=== PATIENT | male | born 1980 | race Hispanic/Latino ===

== ENCOUNTER → 2019-01-31 12:10 | Outpatient (CLI) | payer OTHER, SELFPAY ==
[2019-01-31 15:13] LABS: Urine N gonorrhoeae NOT DETECTED
[2019-01-31 15:16] LABS: Urine Chlamydia NOT DETECTED
== END ==
PROVIDERS: Visit Provider Physician Assistant
DX: Z11.3 Encounter for screening for infections with a predominantly sexual mode of transmission (principal); R73.9 Hyperglycemia, unspecified; R30.0 Dysuria
CPT/HCPCS: 87086; 87491; 87591

== ENCOUNTER → 2019-01-31 12:21 | Outpatient (CLI) | payer OTHER, SELFPAY ==
[2019-01-31 13:06] LABS: Hemoglobin A1C% w Est Avg Glu 12.2 % (4.0-6.0)
== END ==
PROVIDERS: Visit Provider Physician Assistant
DX: R73.9 Hyperglycemia, unspecified (principal)
CPT/HCPCS: 36415; 83036

== ENCOUNTER → 2019-02-08 10:53 | Outpatient (CLI) | payer OTHER, SELFPAY ==
--- NOTE | 2019-02-08 12:37 | DIET.PN ---
Dietary Note Diabetes Intake: Initial Assessment Assess: Mr Izquierdo is a 38 YOM referred for type 2 diabetes. He is newly diagnosed and has been taking metformin and testing BG x 2 days. He reports family HX of diabetes. He reports blood glucose has been between 250-300. His usual dietary intake include sodas, rice, noodles, and high fat foods. He rarely to never consumes fruits or vegetables. He has had no prior diabetes education and presents concerned with the acute and chronic complications discussed today. Pt reports consuming beer nightly. He is going to the [facility] for 2 weeks and admits he will be eating and drinking more heavily than usual. Advised pt continue to take metformin as directed and to monitor BG closely. Labs: Per pt report : A1c: 12.2 FB Lipid Panel: pending Meds: Metformin 500 mg BID; Lisinopril 2.5 mg Diet: per 24 hr recall: high in starches, sugar sweetened bvgs, teas, beer Wt: 191 lb Ht: 66 in BMI: 30. 8 Goal: 160 DX: Altered nutrition related laboratory values related to impaired glucose metabolism, lack of previous exposure to nutrition information as evidenced by pt report, diagnosis of diabetes, previous diet high in refined carbohydrates. Intervention: 1. Completed intake assessment. Discussed barriers to care. 2. Discussed pathophysiology of diabetes. Reviewed A1c and its correlation to blood glucose numbers. Discussed recommended BG ranges. 3. Discussed importance of self-monitoring, how often, and when to check. Provided demonstration on use of glucometer. 4. Reviewed hyper/hypoglycemia and treatment. 5. Reviewed safe disposal of equipment (strip/lancets/insulin needles). 6. Created SMART goals for pt self-care and success. 7. Discussed program curriculum outline and class needs based on individual goals. SMART Goals: 1. Pt would like to lose 10 lb (~5% weight) in the next 3 mo through changes in eating patterns and beginning an exercise program. Monitor/Evaluate: Anticipate good compliance. Pt will attend full DSME program. Exercise and lifestyle class scheduled for Mar 01.
== END ==
PROVIDERS: PCP Nurse Practitioner; Visit Provider Nurse Practitioner
DX: E11.9 Type 2 diabetes mellitus without complications (principal); Z79.84 Long term (current) use of oral hypoglycemic drugs; E66.9 Obesity, unspecified; Z68.30 Body mass index [BMI] 30.0-30.9, adult; Z71.3 Dietary counseling and surveillance
CPT/HCPCS: G0108

== ENCOUNTER → 2019-02-09 08:47 | Outpatient (CLI) | payer OTHER, SELFPAY ==
[2019-02-09 09:17] LABS: Add Manual Diff / Slide Review NO; Basophils Absolute Auto 0 /uL (0-100); Basophils Percent Auto 0.5 % (0-2); Eosinophils Absolute Auto 400 /uL (0-450); Eosinophils Percent Auto 5.3 % (2-4); Hematocrit 46.1 % (41-53); Hemoglobin 16.4 g/dL (13.5-17.5); Lymphocytes Absolute Auto 2300 /uL (1100-4500); Lymphocytes Percent Auto 32.9 % (25-40); Mean Corpuscular HGB Conc 35.5 % (30-36); Mean Corpuscular Hemoglobin 30.8 PG (26-34); Mean Corpuscular Volume 86.7 fL (80-100); Monocytes Absolute Auto 700 /uL (0-900); Monocytes Percent Auto 10.2 % (3-14); Neutrophils Absolute Auto 3600 /uL (1500-7000); Neutrophils Percent Auto 51.1 % (50-75); Platelet Count 202 X10^3/uL (150-400); Red Blood Cell Count 5.32 X10^6/uL (4.5-5.9); Red Cell Distribution Width 12.7 % (11.6-14.8); White Blood Cell Count 7.1 X10^3/uL (4.5-11.0)
[2019-02-09 09:49] LABS: Creatinine Urine Random 316.9 mg/dL
[2019-02-09 09:53] LABS: Alanine Aminotransferase 40 IU/L (<50); Albumin 4.7 g/dL (3.5-5.0); Albumin Globulin Ratio 1.5 (1.0-2.8); Alkaline Phosphatase 81 U/L (38-126); Aspartate Aminotransferase 42 IU/L (17-59); BUN Creatinine Ratio 25.7 (6-22); Bilirubin Total 0.9 mg/dL (0.2-1.3); Blood Urea Nitrogen 18 mg/dL (9-20); Calcium 9.5 mg/dL (8.4-10.2); Carbon Dioxide 28 mmol/L (22-32); Chloride 101 mmol/L (98-107); Cholesterol 296 mg/dL (140-199); Estimated Glomerular Filt Rate > 60.0 mL/min (>60); Globulin 3.1 g/dL (1.7-4.1); Glucose 221 mg/dL (70-100); HDL Cholesterol 40 mg/dL (40-60); HEMOLYSIS < 15 (0-50); Sodium 139 mmol/L (137-145); Total Protein 7.8 g/dL (6.3-8.2); Triglycerides 437 mg/dL (35-150)
[2019-02-09 09:56] LABS: Microalbumi Creatinin Ratio Ur 25.8 ug/mg CR (<30); Microalbumin Urine Random 8.2 mg/dL (0-1.6)
[2019-02-09 10:06] LABS: Free T3, Triiodothyronine Free 4.19 pg/mL (2.77-5.27); Free T4, Direct Thyroxine 1.24 ng/dL (0.78-2.19)
[2019-02-09 10:20] LABS: Thyroid Stimulating Hormone 1.71 uIU/mL (0.47-4.68)
== END ==
PROVIDERS: PCP Nurse Practitioner; Visit Provider Nurse Practitioner
DX: Z00.00 Encounter for general adult medical examination without abnormal findings (principal); E11.9 Type 2 diabetes mellitus without complications; I10 Essential (primary) hypertension
CPT/HCPCS: 36415; 80053; 80061; 82043; 82570; 84439; 84443; 84481; 85025

== ENCOUNTER → 2019-03-01 09:56 | Outpatient (CLI) | payer OTHER, SELFPAY ==
--- NOTE | 2019-03-01 12:04 | DIET.PN ---
Exercise/Lifestyle change (1 hr): 1. Importance of exercise 2. FITT (frequency, intensity, time, type) 3. Strength training tips and guidelines 4. Glucose monitoring/ranges before and after 5. Proper foot attire 6. Developing strategies for behavior change 7. SMART Goal Setting 8. Home exercise routine demonstration (as a class)
== END ==
PROVIDERS: PCP Nurse Practitioner; Visit Provider Nurse Practitioner
DX: E11.9 Type 2 diabetes mellitus without complications (principal); I10 Essential (primary) hypertension; Z71.3 Dietary counseling and surveillance
CPT/HCPCS: G0109

== ENCOUNTER → 2019-04-02 10:27 | Outpatient (CLI) | payer OTHER, SELFPAY ==
[2019-04-02 13:37] VITALS: BMI 30.2
--- NOTE | 2019-04-02 13:47 | DIET.PN ---
DIABETES Nutrition Initial Assessment:? ASSESS:???38 yom referred for type 2 diabetes seen as part of DSME program. Patient has cut out all sugar sweetened beverages since diagnosis. He continues to eat fast food or processed items 1-2 meals each day. Dinner generally consists of homemade chicken or fish with a vegetable stir mclain. He admits to drinking 5-6 beers most nights and occasionally drinks hard liquor. He has not started exercising as he is walking around at work most of his shift. He works an evening shift (2p-10p) and is usually up until 4 am following his shift. Breakfast consists of [employer] BigMac (noon), Beef Pot Pie for lunch (6-7p) and a stir-mclain for dinner (11p). He snacks on beef jerky or anything that is available in his work breakroom. ? LABS: Per pt report:? A1c: 12.2 TC: 296 LDL :TNP HDL: 40 Tri ? MEDS:?? metf 500mg BID; Lisinopril: 2.5mg ? DIET: Per 24-hour recall:? B: [employer] BigMac (noon) L: Beef Pot Pie (6-7p) D: Chicken stir-mclain (11p) ? Weight: 188 (down 3 #) Ht:? 66? BMI: 30.2 ? Exercise:? walks at work NUTRITION DX 1. Altered Nutrition related labs related to impaired glucose metabolism, lack of previous exposure to accurate nutrition information as evidenced by pt report, dx of diabetes, previous diet high in refined carbohydrates.? INTERVENTION(s): 1. Discussed pathophysiology of diabetes and impact of nutrition/diet on blood sugar control.? Discussed fed versus non-fed state.?? 2. Discussed the effect of carbohydrates/protein/fat on blood sugar control.? Stressed importance of consistent carbohydrate intake at each meal and provided instructions for recommended servings/portions of carbohydrates/protein per meal. Provided pt with educational material. 3. Reviewed carbohydrate counting and measuring carbohydrate content via serving sizes and reading nutrition labels.? Provided handouts.?? 4. Discussed the difference between simple versus complex carbohydrates and the effect of fiber on blood sugar control.? Discussed various methods to increase fiber content in diet. 5. Stressed importance of meal timing and not going >4-5 hours between meals. Encouraged adding protein to evening snack to support glucose control overnight. Patient agreeable. 6. Discussed healthy weight loss goals of 1-2lbs per week through diet and exercise.? Pt agreeable to incorporating 30 min of strength/resistance training activity 3x/wk. MONITOR/EVALUATE: Anticipate good compliance.? Pt to continue classes, Follow-up scheduled for 1 month to discuss new labs.
== END ==
PROVIDERS: PCP Nurse Practitioner; Visit Provider Nurse Practitioner
DX: E11.9 Type 2 diabetes mellitus without complications (principal); Z79.84 Long term (current) use of oral hypoglycemic drugs; Z71.3 Dietary counseling and surveillance; E66.9 Obesity, unspecified; Z68.30 Body mass index [BMI] 30.0-30.9, adult
CPT/HCPCS: G0109

== ENCOUNTER → 2019-04-16 14:25 | Outpatient (CLI) | payer OTHER, SELFPAY ==
--- NOTE | 2019-04-16 17:00 | DIET.PN ---
Diabetes: Healthy Eating 2 Intervention: Fats effects on glucose, weight, heart disease, cholesterol Sat Vs Unsat Protein- animal and plant based options Low, med, high fat meats Sugar substitutes Sodium Health claims Grocery shopping guidelines Eating away from home Alcohol Sick day guidelines
== END ==
PROVIDERS: PCP Nurse Practitioner; Visit Provider Nurse Practitioner
DX: E11.9 Type 2 diabetes mellitus without complications (principal)
CPT/HCPCS: G0109

== ENCOUNTER → 2019-04-26 09:00 | Outpatient (CLI) | payer OTHER, SELFPAY ==
[2019-04-26 10:10] LABS: Cholesterol 260 mg/dL (140-199); Glucose 191 mg/dL (70-100); HDL Cholesterol 48 mg/dL (40-60); Triglycerides 461 mg/dL (35-150)
[2019-04-26 16:44] LABS: Hemoglobin A1C% w Est Avg Glu 9.3 % (4.0-6.0)
== END ==
PROVIDERS: PCP Nurse Practitioner; Visit Provider Nurse Practitioner
DX: E11.9 Type 2 diabetes mellitus without complications (principal); I10 Essential (primary) hypertension
CPT/HCPCS: 36415; 80061; 82947; 83036

== ENCOUNTER → 2019-04-26 09:59 | Outpatient (CLI) | payer OTHER, SELFPAY ==
--- NOTE | 2019-04-26 12:17 | DIET.PN ---
Diabetes Physiology: Intervention 1. Diabetes physiology 2. Detecting and treatment of acute and chronic complications 3. Diagnosis of and difference in types of diabetes 4. Self-monitoring and pattern management a. Demonstrate glucometer and control testing b. Explain BG results and action to take when out of range. 5. Foot , eye, dental care 6. Medications a. Oral medication classification b. Injectable c. Insulin i. Injection protocol i. Other delivery methods
== END ==
PROVIDERS: PCP Nurse Practitioner; Visit Provider Nurse Practitioner
DX: E11.9 Type 2 diabetes mellitus without complications (principal); I10 Essential (primary) hypertension
CPT/HCPCS: 36415; 80061; 82947; 83036; G0109

== ENCOUNTER → 2019-05-17 10:34 | Outpatient (CLI) | payer OTHER, SELFPAY ==
--- NOTE | 2019-05-17 11:55 | DIET.PN ---
Diabetes Follow Up Assess: Met for Mr. Izquierdo's 3 mo follow up visit. He is excited to report a significant reduction in his HbgA1c. He reports making several changes to his dietary habits including decreasing servings of rice and other starches, completely cutting out sugary sweetened beverages, and cutting back on alcohol. He admits he did not follow these new patterns while on vacation the last 2 weeks, but is ready to get back on it. We discussed his most recent labs in detail. His total cholesterol did improve while his triglycerides increased. He is aware his chronic intake of alcohol can effect these labs as well as a diet high in saturated fats. Since beginning the diabetes program he had an opportunity to see an eye doctor and is working on getting a dental appointment. He is seeing a client success manager regularly and is eager to continue bringing his blood sugars down. He has not started exercising due to his work schedule but agrees to make this a part of his routine at least 3 days per week by joining a local fitness facility. His metformin was increased to 1000 mg BID. Reports GI side effects, but is aware this will resolve. Labs: 9.3 (baseline 12.2) Chol: 260 (baseline 296) LDL: TNP HDL: 48 (baseline 40) Tri (baseline 437) Meds: metformin 1000 mg BID ; lisinopril; started a statin Dietary changes: decreased starch intake, cut out sugary beverages Ht: 66 Wt: 188# (baseline 191) BMI: 30.2 Nutrition DX: Altered nutrition related laboratory values related to impaired glucose metabolism, lack of previous exposure to nutrition information as evidenced by pt report, diagnosis of diabetes, previous diet high in refined carbohydrates. Intervention: 1. Completed follow up assessment. Reviewed barriers to care. 2. Reviewed new labs and importance of continued BG monitoring. 3. Reviewed SMART goals and made modifications where appropriate including wt management, activity, and A1c goals. 4. Discussed plan for ongoing support. Provided information for continued support and success. SMART goals: 1. Begin exercising 3x/wk by signing up for local fitness facility. 2. Continue monitoring fasting BG and 2 hr pp alternating mealtimes. Monitor/Evaluate: Pt will follow up in 3 mo to discuss new labs and barriers to care.
== END ==
PROVIDERS: PCP Nurse Practitioner; Referring Provider Nurse Practitioner; Visit Provider Nurse Practitioner
DX: E11.69 Type 2 diabetes mellitus with other specified complication (principal); E66.9 Obesity, unspecified; Z71.3 Dietary counseling and surveillance; Z79.84 Long term (current) use of oral hypoglycemic drugs; Z68.30 Body mass index [BMI] 30.0-30.9, adult
CPT/HCPCS: G0109

== ENCOUNTER → 2019-06-07 09:50 | Outpatient (CLI) | payer OTHER, SELFPAY ==
--- NOTE | 2019-06-07 11:44 | DIET.PN ---
Diabetes: Healthy Eating 1 Intervention: ? Discussed pathophysiology of diabetes and impact of nutrition/diet on blood sugar control.? Discussed fed versus non-fed state.?? ? Reviewed importance of Balance, Variety, and Moderation. ? Discussed the effect of carbohydrates/protein/fat on blood sugar control.? ? Stressed importance of consistent carbohydrate intake at each meal and provided instructions for recommended servings/portions of carbohydrates/protein per meal. Provided educational material. ? Reviewed carbohydrate counting and measuring carbohydrate content via serving sizes and reading nutrition labels.? Provided handouts.?? ? Discussed the difference between simple versus complex carbohydrates and the effect of fiber on blood sugar control.? Discussed various methods to increase fiber content in diet. ? Discussed the plate method for creating more carbohydrate conscious balanced meals. ? Stressed importance of meal timing and not going >4-5 hours between meals. Encouraged adding protein to evening snack to support glucose control overnight. ?Discussed importance of making dietary habits part of lifestyle change.
== END ==
PROVIDERS: PCP Nurse Practitioner; Referring Provider Nurse Practitioner; Visit Provider Nurse Practitioner
DX: E11.9 Type 2 diabetes mellitus without complications (principal); I10 Essential (primary) hypertension; Z71.3 Dietary counseling and surveillance
CPT/HCPCS: G0109

== ENCOUNTER 2019-06-13 16:30 | Emergency (ER) | payer OTHER, SELFPAY ==
[2019-06-13 16:45] VITALS: BP 147/97; PULSE 114; RESP 20; TEMP 36.8; O2SAT 97; BMI 29.5
--- NOTE | 2019-06-13 17:00 | DI.RAD.S_ITS ---
PROCEDURE: XR HIP W PEL IF DONE RT 2V INDICATIONS: pain TECHNIQUE: AP pelvis with lateral view(s) of the right hip(s). COMPARISON: None. FINDINGS: Bones: No fractures or dislocations. Pelvic ring appears intact. No suspicious bony lesions. Mild right hip degenerative change. Soft tissues: The visualized bowel gas pattern is normal. No suspicious soft tissue calcifications. IMPRESSION: Mild right hip degenerative change. No evidence acute bony abnormality of the pelvis and right hip. If clinical suspicion and/or symptoms persist, further assessment with repeat plain films, or advanced imaging (e.g., CT, MRI, or bone scan) may be helpful for further assessment. Dictated by: Nixon Shafer M.D. on 06/13/2019 at 17:30 Approved by: Nixon Shafer M.D. on 06/13/2019 at 17:30
[2019-06-13 17:03] VITALS: BMI 29.5
[2019-06-13] MEDS: KETOROLAC 60 MG/2 ML VIAL IM (17:09)
--- NOTE | 2019-06-13 17:16 | PC.NURSE ---
patient was positioned in the left lateral position and given Intramuscular injection in the ventralgluteal space.
--- NOTE | 2019-06-13 18:18 | ED_ITS ---
HPI - Extremity Injury (Lower) <YG Arzate - Last Filed: 06/13/19 18:29> General Chief Complaint: Extremity Injury, Lower Stated Complaint: Inner right thigh/groin pain injury yesterday Time Seen by Provider: 06/13/19 16:48 Source: patient Mode of arrival: Ambulatory Limitations: no limitations History of Present Illness HPI Narrative: The patient is a 38-year-old male current smoker with history of hypertension who presents with a chief complaint of right side that I and groin pain since yesterday. He was working on a ladder, lifting up posters and then had pain in his right groin area. He denies any dysuria urgency or frequency. He states it is in the inguinal region. He denies any testicular pain. He has not taken any Tylenol or Motrin or anything to help it feel better. He states it is worse with motion and that he thinks he ?pulled something.He denies any falls or trauma. And picking up his leg makes the pain worse. He does have a family history of arthritis. He does state that he drinks about 6 cans of beer most days of the week. 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 Related Data Home Medications Medication Instructions Recorded Confirmed atorvastatin 06/13/19 lisinopril 06/13/19 metformin mg 06/13/19 Previous Rx's Medication Instructions Recorded alcohol swabs 1 pad TOP .QD #100 each 02/04/19 blood sugar diagnostic #100 each 02/04/19 blood-glucose meter #1 each 02/04/19 lancets #100 each 02/04/19 atorvastatin 10 mg tablet 10 mg PO BEDTIME #90 tab 05/03/19 lisinopril 2.5 mg tablet 2.5 mg PO DAILY #90 tab 05/03/19 metformin 1,000 mg tablet 1,000 mg PO BID #90 tab 05/03/19 ketorolac 10 mg PO TID PRN #14 tab 06/13/19 Allergies Allergy/AdvReac Type Severity Reaction Status Date / Time No Known Drug Allergies Allergy Verified 06/13/19 16:45 Review of Systems <YG Arzate - Last Filed: 06/13/19 18:29> Review of Systems Narrative: GENERAL: Denies chills, fatigue, malaise, fever, sweats. HEENT: Denies sinus pain, ear pain, sore throat, difficulty swallowing, dizziness. RESPIRATORY: Denies dyspnea, cough, wheezing, hemoptysis, sputum. CARDIOVASCULAR: Denies chest pain, palpitations, orthopnea, edema, GASTROINTESTINAL: Denies nausea, vomiting, abdominal pain, diarrhea, constipation, melena. : Denies dysuria, frequency, incontinence, hematuria, urinary retention. MUSCULOSKELETAL: See HPI SKIN: Denies rash, skin lesions, or other NEUROLOGIC: Denies weakness, headache, numbness, change in speech, confusion, seizures, incoordination. PSYCHIATRIC: No concerning psychosocial issues. 12 point review of systems is negative except for those stated above Patient History <YG Arzate - Last Filed: 06/13/19 18:29> Medical History Hyperlipidemia (Acute) Occupational exposure in workplace (Acute) Family History Father Hypertension Hyperlipidemia Mother Type I diabetes mellitus Mental health problem Sister Lupus Social History Smoking Status: Current every day smoker eating out: 4 or more times/week Type(s) of exercise: walking Smoking Status: Current every day smoker tobacco type: cigarettes alcohol intake frequency: 3 or more drinks per day Alcohol type: beer Substance Use Type: does not use Exam <YG Arzate - Last Filed: 06/13/19 18:29> Narrative Exam Narrative: GENERAL: This is a well-nourished, well-developed patient, no acute distress HEAD: Atraumatic. Normocephalic. No temporal or scalp tenderness. EYES: Pupils equal round and reactive. Extraocular motions intact. No scleral icterus. No injection or drainage. ENT: Nose without bleeding, purulent drainage or septal hematoma. Throat without erythema, tonsillar hypertrophy or exudate. Uvula midline. Airway patent. NECK: Trachea midline. No JVD or lymphadenopathy. Supple, nontender, no meningeal signs. CARDIOVASCULAR: Regular rate and rhythm RESPIRATORY: Clear to auscultation. Breath sounds equal bilaterally. No wheezes, rales, or rhonchi. No cough. No increased respiratory effort. No accessory muscle use. EXTREMITIES: No clubbing, cyanosis, or edema. No joint tenderness, effusion, or edema noted. Bilateral pedal pulses intact. Pain to palpation of right inguinal area. decreased range of motion all rosenberg right hip. BACK: Nontender without deformity or crepitance. No flank tenderness. NEURO: AOx3. SKIN: No rash or erythema. Initial Vital Signs Initial Vital Signs: Vital Signs Temperature 98.2 F 06/13/19 16:45 Pulse Rate 114 H 06/13/19 16:45 Respiratory Rate 20 06/13/19 16:45 Blood Pressure 147/97 H 06/13/19 16:45 Pulse Oximetry 97 06/13/19 16:45 <Jeanmarie Pena DO - Last Filed: 06/13/19 18:48> Initial Vital Signs Initial Vital Signs: Vital Signs Temperature 98.2 F 06/13/19 16:45 Pulse Rate 114 H 06/13/19 16:45 Respiratory Rate 20 06/13/19 16:45 Blood Pressure 147/97 H 06/13/19 16:45 Pulse Oximetry 97 06/13/19 16:45 Course <YG Arzate - Last Filed: 06/13/19 18:29> Orders Ordered: ED Orders 06/13/19 17:00 XR hip w pel if done RT 2V Stat Discontinued Medications Ketorolac Tromethamine (Toradol) 60 mg IM NOW ONE Stop: 06/13/19 17:01 Last Admin: 06/13/19 17:09 Dose: 60 mg Documented by: INES Vital Signs Vital signs: Vital Signs - 8 hr 06/13/19 16:45 06/13/19 18:32 Temperature 98.2 F Pulse Rate 114 H 98 H Respiratory Rate 20 Blood Pressure 147/97 H 140/94 H Pulse Oximetry 97 98 <Jeanmarie Pena DO - Last Filed: 06/13/19 18:48> Orders Ordered: ED Orders 06/13/19 17:00 XR hip w pel if done RT 2V Stat Discontinued Medications Ketorolac Tromethamine (Toradol) 60 mg IM NOW ONE Stop: 06/13/19 17:01 Last Admin: 06/13/19 17:09 Dose: 60 mg Documented by: INES Vital Signs Vital signs: Vital Signs - 8 hr 06/13/19 16:45 03/19/20 18:32 Temperature 98.2 F Pulse Rate 114 H 98 H Respiratory Rate 20 Blood Pressure 147/97 H 140/94 H Pulse Oximetry 97 98 [facility] - Extremity Injury (Lower) <YG Arzate - Last Filed: 06/13/19 18:29> Imaging Data Hip x-ray: Radiologist's Impression: [address] [place] [id number] XRay Report Signed Patient: Joe IzquierdoMR#: [id number] : 1980Acct:[id number] Age/Sex: 38 / MDate of Service: 06/13/19 Loc: ED Accession Number: [id number] Procedure: XR hip w pel if done RT 2V Ordering Provider: Sabi Donahue PROCEDURE: XR HIP W PEL IF DONE RT 2V INDICATIONS: pain TECHNIQUE: AP pelvis with lateral view(s) of the right hip(s). COMPARISON: None. FINDINGS: Bones: No fractures or dislocations. Pelvic ring appears intact. No suspicious bony lesions. Mild right hip degenerative change. Soft tissues: The visualized bowel gas pattern is normal. No suspicious soft tissue calcifications. IMPRESSION: Mild right hip degenerative change. No evidence acute bony abnormality of the pelvis and right hip. If clinical suspicion and/or symptoms persist, further assessment with repeat plain films, or advanced imaging (e.g., CT, MRI, or bone scan) may be helpful for further assessment. Dictated by: Nixon Shafer M.D. on 06/13/2019 at 17:30 Approved by: Nixon Shafer M.D. on 06/13/2019 at 17:30 [facility] Narrative Medical decision making narrative: The patient is a 38-year-old male who presents with a chief complaint of right inguinal pain. He is neurovascularly intact, has no palpable hernias or abnormalities. However he has decreased with range of motion. X-ray showed no acute fracture, but rather early degenerative changes for his right hip. He feels much improved after dose of Toradol in the emergency department requested a prescription of it. I discussed at length rest ice compression elevation as well as [id number] pain medications as needed and able. Encouraged not taking any of NSAIDs such as ibuprofen with Toradol. Encourage PCP follow-up in the next few days. Patient has no questions or concerns upon discharge and states understanding return precautions as well as follow-up care. The patient repeatedly declined further medications such as Flexeril. Discharge Plan Departure Patient Disposition: Home Clinical Impression: Strain of muscle of right groin region Discharge Date/Time: 06/13/19 18:34 Instructions: Help for Hip Pain, DI for Muscle Strain, DI for Groin Strain, DI for Hip Pain Activity Restrictions/Additional Instructions: Thank you for trusting us with your care today As I discussed, your x-ray shows no acute fracture. This does not rule out a soft tissue injury such as a ligament or tendon injury. It is important that you follow up with primary care provider, especially if worsening or no improvement. There can be fractures that did not show up on initial x-ray. Your x-rays do indicate mild right hip degenerative changes. Sent 1 prescription to [facility]. I have given you a prescription of Toradol. This is an NSAID. Do not combine it with other NSAIDs such as Aleve or ibuprofen. I suggest taking it with some food, as it can irritate your stomach. Please follow-up with primary care provider. Please use rest ice compression elevation. Prescriptions: New ketorolac 10 mg tablet 10 mg PO TID PRN (Reason: pain) Qty: 14 RF: 0 No Action (DME) blood-glucose meter Misc See Rx Instructions .ROUTE .MEDSUPPLY Qty: 1 RF: 0 (DME) Blood Glucose Test Strip See Rx Instructions .ROUTE .MEDSUPPLY Qty: 100 RF: 3 (DME) lancets Misc See Rx Instructions .ROUTE .MEDSUPPLY Qty: 100 RF: 3 alcohol swabs Pads, Medicated 1 pad TOP .QD Qty: 100 RF: 3 metformin 1,000 mg tablet 1,000 mg PO BID Qty: 90 RF: 3 atorvastatin 10 mg tablet 10 mg PO BEDTIME Qty: 90 RF: 1 lisinopril 2.5 mg tablet 2.5 mg PO DAILY Qty: 90 RF: 3 atorvastatin 10 mg tablet RF: 0 lisinopril 2.5 mg tablet RF: 0 metformin 1,000 mg tablet RF: 0 Referrals: Ronda Ortiz ARNP [Primary Care Provider] - Stand Alone Forms: Work Release Note ED Sign-out <KELLEY Arzate- - Last Filed: 06/13/19 18:29> Cosign ED Attending Cosignature Attestation: I was immediately available in the department for consultation. This documentation has been reviewed and I agree with assessment and plan. Supervised by YG Arzate <Jeanmarie Pena, DO - Last Filed: 06/13/19 18:48> Cosign ED Attending Shelly Attestation: Dr Pena Co-Sign Statement: I was available for consultation during this patient's emergency department visit. This chart is signed by myself for administrative purposes only. I did not have direct contact with this patient during this visit. They were seen independently by the APC.
[2019-06-13 18:32] VITALS: BP 140/94; PULSE 98; O2SAT 98
== END 2019-06-13 18:34 | disposition home or self-care (01) ==
PROVIDERS: Emergency Provider Nurse Practitioner Family; PCP Nurse Practitioner
DX: S39.013A Strain of muscle, fascia and tendon of pelvis, initial encounter (principal); E78.5 Hyperlipidemia, unspecified; I10 Essential (primary) hypertension; Y99.0 Civilian activity done for income or pay
CPT/HCPCS: 73502; 96372; 99283; J1885

== ENCOUNTER → 2019-10-19 07:33 | Outpatient (CLI) | payer OTHER, SELFPAY ==
[2019-10-19 09:41] LABS: Alanine Aminotransferase 55 IU/L (<50); Albumin 4.8 g/dL (3.5-5.0); Albumin Globulin Ratio 1.8 (1.0-2.8); Alkaline Phosphatase 70 U/L (38-126); Aspartate Aminotransferase 41 IU/L (17-59); Bilirubin Total 1.1 mg/dL (0.2-1.3); Cholesterol 152 mg/dL (140-199); Globulin 2.6 g/dL (1.7-4.1); Glucose 134 mg/dL (70-100); HDL Cholesterol 52 mg/dL (40-60); HEMOLYSIS < 15 (0-50); LDL Cholesterol Calculated 45 mg/dL (<100); Total Protein 7.4 g/dL (6.3-8.2); Triglycerides 277 mg/dL (35-150)
[2019-10-19 09:43] LABS: Hemoglobin A1C% w Est Avg Glu 8.1 % (4.0-6.0)
== END ==
LOC: LAB 07:34
PROVIDERS: PCP Nurse Practitioner; Referring Provider Nurse Practitioner; Visit Provider Nurse Practitioner
DX: E11.9 Type 2 diabetes mellitus without complications (principal); E78.5 Hyperlipidemia, unspecified
CPT/HCPCS: 36415; 80061; 80076; 82947; 83036

== ENCOUNTER → 2020-01-10 08:08 | Outpatient (CLI) | payer OTHER, SELFPAY ==
[2020-01-10 09:15] LABS: Hemoglobin A1C% w Est Avg Glu 7.8 % (4.0-6.0)
[2020-01-10 09:28] LABS: Alanine Aminotransferase 76 IU/L (<50); Albumin 4.9 g/dL (3.5-5.0); Albumin Globulin Ratio 1.5 (1.0-2.8); Alkaline Phosphatase 73 U/L (38-126); Aspartate Aminotransferase 56 IU/L (17-59); BUN Creatinine Ratio 18.1 (6-22); Blood Urea Nitrogen 15 mg/dL (9-20); Calcium 9.5 mg/dL (8.4-10.2); Carbon Dioxide 28 mmol/L (22-32); Chloride 99 mmol/L (98-107); Cholesterol 167 mg/dL (140-199); Estimated Glomerular Filt Rate > 60.0 mL/min (>60); Globulin 3.2 g/dL (1.7-4.1); Glucose 154 mg/dL (70-100); HDL Cholesterol 57 mg/dL (40-60); HEMOLYSIS < 15 (0-50); LDL Cholesterol Calculated 54 mg/dL (<100); Potassium 4.2 mmol/L (3.4-5.1); Sodium 135 mmol/L (137-145); Total Protein 8.1 g/dL (6.3-8.2); Triglycerides 281 mg/dL (35-150)
[2020-01-10 09:30] LABS: Creatinine Urine Random 225.4 mg/dL
[2020-01-10 09:34] LABS: Microalbumi Creatinin Ratio Ur 12.4 ug/mg CR (<30); Microalbumin Urine Random 2.8 mg/dL (0-1.6)
[2020-01-10 09:46] LABS: Free T4, Direct Thyroxine 1.03 ng/dL (0.78-2.19)
[2020-01-10 10:00] LABS: Thyroid Stimulating Hormone 3.85 uIU/mL (0.47-4.68)
== END ==
PROVIDERS: PCP Nurse Practitioner; Referring Provider Nurse Practitioner; Visit Provider Nurse Practitioner
DX: E11.9 Type 2 diabetes mellitus without complications (principal); E78.5 Hyperlipidemia, unspecified; I10 Essential (primary) hypertension; Z79.899 Other long term (current) drug therapy
CPT/HCPCS: 36415; 80053; 80061; 82043; 82570; 83036; 84439; 84443